=== PATIENT | female | born 1990 | race Caucasian/White ===

== ENCOUNTER 2020-12-21 17:12 | Emergency (ER) | payer OTHER ==
[2020-12-21 17:36] VITALS: BP 105/64; PULSE 54; TEMP 98.9; BMI 36.4
[2020-12-21] MEDS ORDERED: NAPROXEN 500 MG TABLET PO ONE (18:48)
[2020-12-21] MEDS ORDERED: NAPROXEN 500 MG TABLET ONE (18:55)
[2020-12-21 19:36] LABS: BASO % 0.3 % (0-2.0); EOS % 0.7 % (0-4.5); HEMATOCRIT 38.8 % (32.4-45.2); HEMOGLOBIN 12.8 GM/dL (10.7-15.3); LYMPH % 21.2 % (8-40); MCH 27.4 pg (25.7-33.7); MEAN CELL VOLUME 83.1 fl (80-96); MEAN PLT VOLUME 9.7 fl (7.5-11.1); MONO % 7.2 % (3.8-10.2); NEUT % 70.6 % (42.8-82.8); PLATELET COUNT 207 10^3/uL (134-434); RBC 4.67 M/mm3 (3.60-5.2); RDW 14.1 % (11.6-15.6)
[2020-12-21 19:42] LABS: CHLORIDE 107 mmol/L (98-107); SODIUM 139 mmol/L (136-145)
[2020-12-21 19:44] LABS: ANION GAP 7 MMOL/L (8-16); BLOOD UREA NITROGEN 15.7 mg/dL (7-18); CALCIUM 8.9 mg/dL (8.5-10.1); CO2 25 mmol/L (21-32)
[2020-12-21 19:45] LABS: GLUCOSE,RANDOM 88 mg/dL (74-106)
[2020-12-21 19:47] LABS: SGPT/ALT 25 U/L (13-61)
[2020-12-21 19:48] LABS: SGOT/AST 23 U/L (15-37)
[2020-12-21 19:49] LABS: BILIRUBIN,TOTAL 0.2 mg/dL (0.2-1); TOT PROT 7.5 g/dl (6.4-8.2)
[2020-12-21 19:50] LABS: ALK PHOS 77 U/L (45-117)
== END 2020-12-21 20:34 | disposition home or self-care (01) ==
LOC: JER 17:12
DX: M94.0 Chondrocostal junction syndrome [Tietze] (principal)
CPT/HCPCS: 36415; 71046-TC-FY; 80053; 82550; 82553; 84484; 84703; 85025; 93005; 93010; 99285-25; C9803; U0003; U0005

== ENCOUNTER 2021-04-25 21:55 | Emergency (ER) | payer OTHER ==
[2021-04-25 22:05] VITALS: TEMP 98; BMI 34.1
[2021-04-25] MEDS ORDERED: ONDANSETRON 4 MG TABLET PO ONE (22:34)
[2021-04-25] MEDS ORDERED: SODIUM CHLORIDE 0.9% 500 ML INFUS.BAG IV ONE (22:34)
[2021-04-25] MEDS ORDERED: MECLIZINE HCL 12.5 MG TABLET PO ONE (22:34)
[2021-04-25] MEDS ORDERED: ACETAMINOPHEN 1000 MG/100 ML BAG IVPB ONE (22:39)
[2021-04-25] MEDS ORDERED: METOCLOPRAMIDE HCL INJECTION 10 MG/2 ML VIAL IVPB ONE (22:39)
[2021-04-25] MEDS ORDERED: ONDANSETRON *ODT* 4 MG TABLET ONE (22:40)
[2021-04-25] MEDS ORDERED: MECLIZINE HCL 12.5 MG TABLET ONE (22:40)
[2021-04-25] MEDS ORDERED: METOCLOPRAMIDE HCL INJECTION 10 MG/2 ML VIAL ONE (23:10)
[2021-04-25] MEDS ORDERED: ACETAMINOPHEN INJECTION 100 ML IVPB ONE (23:11)
[2021-04-25 23:29] LABS: HCG,QUALITATIVE URINE Negative
[2021-04-25 23:30] LABS: EPI CELLS 2 /uL (0-25.1); HYALINE CASTS 0 /uL (0-3.1); URINE APPEARANCE CLEAR; URINE BACTERIA 6 /uL (0-1359); URINE BILIRUBIN NEGATIVE (NEGATIVE); URINE COLOR YELLOW; URINE GLUCOSE (UA) NEGATIVE (NEGATIVE); URINE KETONE NEGATIVE (NEGATIVE); URINE LEUK ESTERASE NEGATIVE (NEGATIVE); URINE NITRITE NEGATIVE (NEGATIVE); URINE PROTEIN NEGATIVE (NEGATIVE); URINE RBC 5 /uL (0-23.9); URINE UROBILINOGEN 0.2 mg/dL (0.2-1.0); URINE WBC 2 /uL (0-25.8)
[2021-04-25 23:35] LABS: WHITE BLOOD COUNT 8.3 K/mm3 (4.0-10.0)
[2021-04-25 23:36] LABS: BASO % 0.4 % (0-2.0); EOS % 1.1 % (0-4.5); HEMOGLOBIN 13.2 GM/dL (10.7-15.3); LYMPH % 36.1 % (8-40); MCH 26.6 pg (25.7-33.7); MCHC 32.3 g/dl (32.0-36.0); MEAN CELL VOLUME 82.3 fl (80-96); MEAN PLT VOLUME 9.5 fl (7.5-11.1); MONO % 7.4 % (3.8-10.2); PLATELET COUNT 232 10^3/uL (134-434); RBC 4.98 M/mm3 (3.60-5.2)
[2021-04-25 23:39] LABS: SODIUM 140 mmol/L (136-145)
[2021-04-25 23:42] LABS: ALBUMIN 4.1 g/dl (3.4-5.0); BLOOD UREA NITROGEN 19.6 mg/dL (7-18); CALCIUM 9.3 mg/dL (8.5-10.1); GLUCOSE,RANDOM 89 mg/dL (74-106); LIPASE 232 U/L (73-393)
[2021-04-25 23:45] LABS: SGOT/AST 14 U/L (15-37); SGPT/ALT 21 U/L (13-61)
[2021-04-25 23:47] LABS: BILIRUBIN,TOTAL 0.2 mg/dL (0.2-1); TOT PROT 7.6 g/dl (6.4-8.2)
[2021-04-25 23:48] LABS: ALK PHOS 84 U/L (45-117)
[2021-04-26 00:13] LABS: ANION GAP 6 MMOL/L (8-16); CHLORIDE 107 mmol/L (98-107); CO2 27 mmol/L (21-32)
[2021-04-26 00:29] VITALS: BP 100/54; PULSE 65
== END 2021-04-26 00:50 | disposition home or self-care (01) ==
LOC: JER 21:55
PROC: 3E033GC Introduction of Other Therapeutic Substance into Peripheral Vein, Percutaneous Approach (ICD-10-PCS; principal; 2021-04-25)
DX: R42 Dizziness and giddiness (principal); R11.0 Nausea
CPT/HCPCS: 36415; 70450-TC; 80053; 81003; 82550; 82553; 83690; 84484; 84703; 85025; 87086; 93005; 93010; 99285-25; J0131

== ENCOUNTER 2021-06-14 10:46 | Emergency (ER) | payer OTHER ==
[2021-06-14 10:53] VITALS: TEMP 97.9; BMI 37.8
[2021-06-14] MEDS ORDERED: ONDANSETRON 4 MG/2 ML VIAL IVPUSH ONE (12:09)
[2021-06-14] MEDS ORDERED: KETOROLAC TROMETHAMINE 30 MG/1 ML VIAL IVPUSH ONE (12:09)
[2021-06-14] MEDS ORDERED: SODIUM CHLORIDE 1,000 ML IV STA (12:14)
[2021-06-14] MEDS ORDERED: ONDANSETRON 4 MG/2 ML VIAL ONE (12:22)
[2021-06-14] MEDS ORDERED: KETOROLAC TROMETHAMINE 30 MG/1 ML VIAL ONE (12:22)
[2021-06-14 12:23] LABS: BASO % 0.4 % (0-2.0); EOS % 1.2 % (0-4.5); HEMATOCRIT 38.1 % (32.4-45.2); HEMOGLOBIN 12.8 GM/dL (10.7-15.3); LYMPH % 30.5 % (8-40); MCH 27.1 pg (25.7-33.7); MCHC 33.5 g/dl (32.0-36.0); MEAN PLT VOLUME 8.7 fl (7.5-11.1); MONO % 7.5 % (3.8-10.2); NEUT % 60.4 % (42.8-82.8); PLATELET COUNT 195 10^3/uL (134-434); RDW 14.1 % (11.6-15.6); WHITE BLOOD COUNT 5.6 K/mm3 (4.0-10.0)
[2021-06-14 12:54] LABS: ALBUMIN 4.1 g/dl (3.4-5.0); CALCIUM 9.5 mg/dL (8.5-10.1)
[2021-06-14 12:55] LABS: BLOOD UREA NITROGEN 12.5 mg/dL (7-18)
[2021-06-14 12:58] LABS: CREATININE 0.8 mg/dL (0.55-1.3)
[2021-06-14 12:59] LABS: BILIRUBIN,TOTAL 0.4 mg/dL (0.2-1); TOT PROT 7.4 g/dl (6.4-8.2)
[2021-06-14 14:20] LABS: URINE APPEARANCE CLEAR; URINE BILIRUBIN NEGATIVE (NEGATIVE); URINE COLOR YELLOW; URINE GLUCOSE (UA) NEGATIVE (NEGATIVE); URINE KETONE NEGATIVE (NEGATIVE); URINE LEUK ESTERASE NEGATIVE (NEGATIVE); URINE NITRITE NEGATIVE (NEGATIVE); URINE PROTEIN NEGATIVE (NEGATIVE); URINE UROBILINOGEN 0.2 mg/dL (0.2-1.0)
[2021-06-14 14:21] LABS: HCG,QUALITATIVE URINE Negative
[2021-06-14 15:45] VITALS: BP 120/82; PULSE 62
== END 2021-06-14 15:45 | disposition home or self-care (01) ==
LOC: JER 10:46
PROC: 3E0333Z Introduction of Anti-inflammatory into Peripheral Vein, Percutaneous Approach (ICD-10-PCS; principal; 2021-06-14)
PROC: 3E033GC Introduction of Other Therapeutic Substance into Peripheral Vein, Percutaneous Approach (ICD-10-PCS; 2021-06-14)
PROC: 3E0337Z Introduction of Electrolytic and Water Balance Substance into Peripheral Vein, Percutaneous Approach (ICD-10-PCS; 2021-06-14)
DX: R10.31 Right lower quadrant pain (principal); R10.11 Right upper quadrant pain
CPT/HCPCS: 36415; 74177-TC; 80053; 81003; 83690; 84703; 85025; 87086; 99285-25; Q9967

== ENCOUNTER 2022-03-19 01:58 | Emergency (ER) | payer OTHER ==
[2022-03-19 02:43] VITALS: BP 139/84; PULSE 95; RESP 20; TEMP 100.4; BMI 41.5
[2022-03-19 03:13] LABS: THROAT:GRP A STREP DETECTED (NOTDETECTED)
[2022-03-19] MEDS ORDERED: DEXAMETHASONE SOD PHOSPHATE 10 MG/1 ML VIAL IM ONE (03:30)
[2022-03-19] MEDS ORDERED: KETOROLAC TROMETHAMINE 15 MG/ML VIAL IM ONE (03:30)
[2022-03-19] MEDS ORDERED: CEPHALEXIN 250 MG/5 ML ORAL SUSPENSION PO ONE (03:31)
[2022-03-19] MEDS ORDERED: DEXAMETHASONE SOD PHOSPHATE 10 MG/1 ML VIAL ONE (03:48)
[2022-03-19] MEDS ORDERED: KETOROLAC TROMETHAMINE 15 MG/ML VIAL ONE (03:48)
[2022-03-19] MEDS ORDERED: CEPHALEXIN MONOHYDRATE 500 MG CAPSULE (UD) ONE (03:48)
== END 2022-03-19 04:04 | disposition home or self-care (01) ==
LOC: JER 01:58
PROC: 3E023GC Introduction of Other Therapeutic Substance into Muscle, Percutaneous Approach (ICD-10-PCS; principal; 2022-03-19)
DX: J02.0 Streptococcal pharyngitis (principal)
CPT/HCPCS: 0241U-QW; 87651; 99284-25; J1100

== ENCOUNTER 2023-07-30 22:51 | Emergency (ER) | payer OTHER ==
[2023-07-30 22:56] VITALS: BP 117/70; PULSE 56; RESP 18; TEMP 98; BMI 34.7
[2023-07-30] MEDS ORDERED: ONDANSETRON 4 MG/2 ML VIAL ONE (23:32)
[2023-07-30] MEDS ORDERED: ACETAMINOPHEN INJECTION 100 ML IVPB ONE (23:32)
[2023-07-30] MEDS: ONDANSETRON 4 MG/2 ML VIAL IVPUSH ONE (23:53)
[2023-07-30] MEDS: ACETAMINOPHEN 1000 MG/100 ML BAG IVPB ONE (23:53)
[2023-07-30] MEDS: SODIUM CHLORIDE 1,000 ML IV STA (23:53)
[2023-07-30 23:59] LABS: BASO % 0.4 % (0-2.0); EOS % 2.3 % (0-4.5); HEMATOCRIT 34.5 % (32.4-45.2); HEMOGLOBIN 11.4 GM/dL (10.7-15.3); MCH 27.3 pg (25.7-33.7); MCHC 32.9 g/dl (32.0-36.0); MEAN CELL VOLUME 83.2 fl (80-96); NEUT % 51.3 % (42.8-82.8); PLATELET COUNT 190 10^3/uL (134-434); RBC 4.15 M/mm3 (3.60-5.2); RDW 15.7 % (11.6-15.6); WHITE BLOOD COUNT 6.4 K/mm3 (4.0-10.0)
[2023-07-31] MEDS ORDERED: FAMOTIDINE 20 MG/50 ML IVPB 20 MG/50 ML MG IVPB ONE (00:02)
[2023-07-31 00:04] LABS: INR 1.1 (0.83-1.09); PROTHROMBIN TIME (PATIENT) 12.4 SEC (9.7-13.0)
[2023-07-31] MEDS: FAMOTIDINE 20 MG/50 ML IVPB 20 MG/50 ML MG IVPB ONE (00:05)
[2023-07-31 00:07] LABS: ACTIVATED PTT 33.2 SECONDS (25.2-36.5)
[2023-07-31 00:19] LABS: CHLORIDE 111 mmol/L (98-107); SODIUM 142 mmol/L (136-145)
[2023-07-31 00:22] LABS: ALBUMIN 3.8 g/dl (3.4-5.0); ANION GAP 4 mmol/L (4-13); CALCIUM 9.3 mg/dL (8.5-10.1); CO2 26 mmol/L (21-32); GLUCOSE,RANDOM 82 mg/dL (74-106); MAGNESIUM 2.3 mg/dL (1.8-2.4)
[2023-07-31 00:25] LABS: CREATININE 0.9 mg/dL (0.55-1.3); SGOT/AST 19 U/L (15-37); SGPT/ALT 23 U/L (13-61)
[2023-07-31 00:27] LABS: BILIRUBIN,TOTAL 0.3 mg/dL (0.2-1); TOT PROT 6.8 g/dl (6.4-8.2)
[2023-07-31 00:28] LABS: ALK PHOS 91 U/L (45-117)
[2023-07-31 02:39] LABS: HCG,QUALITATIVE URINE Negative
[2023-07-31 02:42] LABS: EPI CELLS 21 /uL (0-25.1); HYALINE CASTS 1 /uL (0-3.1); URINE APPEARANCE CLEAR; URINE BACTERIA 162 /uL (0-1359); URINE BILIRUBIN NEGATIVE (NEGATIVE); URINE COLOR YELLOW; URINE GLUCOSE (UA) NEGATIVE (NEGATIVE); URINE KETONE 1+ (NEGATIVE); URINE LEUK ESTERASE NEGATIVE (NEGATIVE); URINE NITRITE NEGATIVE (NEGATIVE); URINE PROTEIN NEGATIVE (NEGATIVE); URINE UROBILINOGEN 0.2 mg/dL (0.2-1.0); URINE WBC 21 /uL (0-25.8)
[2023-07-31 07:44] LABS: URINE RBC 24.4 /uL (0-23.9)
== END 2023-07-31 03:50 | disposition home or self-care (01) ==
LOC: JER 22:51
PROC: 3E033GC Introduction of Other Therapeutic Substance into Peripheral Vein, Percutaneous Approach (ICD-10-PCS; principal; 2023-07-30)
PROC: 3E033GC Introduction of Other Therapeutic Substance into Peripheral Vein, Percutaneous Approach (ICD-10-PCS; 2023-07-30)
PROC: 3E033NZ Introduction of Analgesics, Hypnotics, Sedatives into Peripheral Vein, Percutaneous Approach (ICD-10-PCS; 2023-07-30)
PROC: 3E0337Z Introduction of Electrolytic and Water Balance Substance into Peripheral Vein, Percutaneous Approach (ICD-10-PCS; 2023-07-30)
DX: R10.13 Epigastric pain (principal); R10.31 Right lower quadrant pain; K92.0 Hematemesis; K92.1 Melena; Z20.822 Contact with and (suspected) exposure to COVID-19
CPT/HCPCS: 0241U-QW; 36415; 71046-TC-FY; 74177-TC; 80053; 81003; 82272; 83690; 83735; 84702; 84703; 85025; 85610; 85730; 87086; 99285-25; J0131; Q9967

== ENCOUNTER 2024-08-12 13:19 | Emergency (ER) | payer OTHER ==
[2024-08-12 13:37] VITALS: BP 102/62; PULSE 54; RESP 20; TEMP 98.4; BMI 30.5
[2024-08-12] MEDS ORDERED: IBUPROFEN 600 MG TABLET (FP) PO ONE (14:16)
[2024-08-12] MEDS ORDERED: ACETAMINOPHEN 500 MG TABLET (FP) ONE (14:17)
[2024-08-12] MEDS: IBUPROFEN 600 MG TABLET (FP) PO ONE (14:28)
[2024-08-12] MEDS: ACETAMINOPHEN 500 MG TABLET (FP) PO ONE (14:29)
[2024-08-12 16:01] LABS: HCV DIAGNOSTIC IN-HOUSE W/RFLX NON-REACTIVE (NONREACTIVE); HIV INTERPRETATION NEGATIVE (NEGATIVE)
== END 2024-08-12 16:22 | disposition home or self-care (01) ==
LOC: JER 13:19
DX: R07.2 Precordial pain (principal); R06.02 Shortness of breath; R00.1 Bradycardia, unspecified; V49.40XD Driver injured in collision with unspecified motor vehicles in traffic accident, subsequent encounter
CPT/HCPCS: 36415; 71046-TC-FY; 86803; 87389; 93005; 93010; 99285-25

== ENCOUNTER 2024-10-01 17:45 | Emergency (ER) | payer OTHER ==
[2024-10-01 18:01] VITALS: BP 100/60; PULSE 60; RESP 18; TEMP 98.2; BMI 30.9
[2024-10-01 18:58] LABS: EPI CELLS 8 /uL (0-25.1); HYALINE CASTS 1 /uL (0-3.1); URINE APPEARANCE CLEAR; URINE BACTERIA 199 /uL (0-1359); URINE BILIRUBIN NEGATIVE (NEGATIVE); URINE COLOR YELLOW; URINE GLUCOSE (UA) NEGATIVE (NEGATIVE); URINE KETONE NEGATIVE (NEGATIVE); URINE LEUK ESTERASE 2+ (NEGATIVE); URINE NITRITE NEGATIVE (NEGATIVE); URINE PROTEIN NEGATIVE (NEGATIVE); URINE RBC 22 /uL (0-23.9); URINE UROBILINOGEN 0.2 mg/dL (0.2-1.0); URINE WBC 639 /uL (0-25.8)
[2024-10-01] MEDS ORDERED: ONDANSETRON 4 MG/2 ML VIAL ONE (19:07)
[2024-10-01] MEDS ORDERED: ACETAMINOPHEN INJECTION 100 ML ONE (19:07)
[2024-10-01] MEDS ORDERED: FAMOTIDINE 20 MG/50 ML IVPB 20 MG/50 ML MG IVPB ONE (19:07)
[2024-10-01 19:12] LABS: ABSOLUTE IMMATURE GRANULOCYTES 0.01 x10^3/uL (0.0-0.031); BASOPHILS # 0.02 x10^3/uL (0.01-0.08); EOSINOPHIL % 0.7 % (0.7-5.8); EOSINOPHILS # 0.05 x10^3/uL (0.04-0.36); MCHC 31.7 g/dl (32.2-35.5); MEAN CELL VOLUME 87.6 fl (79.4-94.8); MEAN PLT VOLUME 11.0 fl (9.4-12.3); MONOCYTE # 0.52 x10^3/uL (0.24-0.86); MONOCYTE % 7.0 % (4.7-12.5); RDW 13.4 % (12.1-16.8)
[2024-10-01 19:21] LABS: CO2 26.0 mmol/L (21-32)
[2024-10-01 19:23] LABS: GLUCOSE,RANDOM 84.0 mg/dL (74-106)
[2024-10-01 19:24] LABS: SGOT/AST 23.0 U/L (15-37); SGPT/ALT 33.0 U/L (13-61)
[2024-10-01 19:25] LABS: CREATININE 0.8 mg/dL (0.55-1.3)
[2024-10-01 19:26] LABS: TOT PROT 7.4 g/dl (6.4-8.2)
[2024-10-01 19:27] LABS: ALK PHOS 123.0 U/L (45-117)
[2024-10-01] MEDS: ONDANSETRON 4 MG/2 ML VIAL IVPUSH ONE (20:00)
[2024-10-01] MEDS: ACETAMINOPHEN 1000 MG/100 ML BAG IVPB ONE (20:05)
[2024-10-01] MEDS: FAMOTIDINE 20 MG/50 ML IVPB 20 MG/50 ML MG IVPB ONE (20:05)
[2024-10-01] MEDS: SODIUM CHLORIDE 0.9% 500 ML INFUS.BAG IV ONE (20:05)
[2024-10-01 21:37] LABS: HCV DIAGNOSTIC IN-HOUSE W/RFLX NON-REACTIVE (NONREACTIVE)
[2024-10-01 21:40] LABS: HIV INTERPRETATION NEGATIVE (NEGATIVE)
[2024-10-01] MEDS ORDERED: SULFAMETHOXAZOLE/TRIMETHOPRIM 800MG/160MG D.S. TABLET ONE (22:17)
[2024-10-01] MEDS: SULFAMETHOXAZOLE/TRIMETHOPRIM 800MG/160MG D.S. TABLET PO ONE (22:18)
== END 2024-10-01 22:54 | disposition home or self-care (01) ==
LOC: JER 17:45
PROC: 3E033GC Introduction of Other Therapeutic Substance into Peripheral Vein, Percutaneous Approach (ICD-10-PCS; principal; 2024-10-01)
PROC: 3E033GC Introduction of Other Therapeutic Substance into Peripheral Vein, Percutaneous Approach (ICD-10-PCS; 2024-10-01)
PROC: 3E033NZ Introduction of Analgesics, Hypnotics, Sedatives into Peripheral Vein, Percutaneous Approach (ICD-10-PCS; 2024-10-01)
DX: N39.0 Urinary tract infection, site not specified (principal); R10.11 Right upper quadrant pain; R10.13 Epigastric pain; R10.31 Right lower quadrant pain; R10.32 Left lower quadrant pain; R10.33 Periumbilical pain; R30.0 Dysuria; R35.0 Frequency of micturition; R39.15 Urgency of urination; R11.2 Nausea with vomiting, unspecified; R19.7 Diarrhea, unspecified
CPT/HCPCS: 36415; 74177-TC; 76705-TC; 80053; 81003; 83605; 83690; 84703; 85025; 86803; 87086; 87389; 99285-25